=== PATIENT | female | born 1995 | race Caucasian/White ===

== ENCOUNTER 2019-06-06 15:01 | Inpatient (IN) | payer OTHER ==
[~2019-06-06] VITALS: Ht 170.2 cm; Wt 59.5 kg
[2019-06-06] VITALS (20 sets, daily range): BP systolic 120–133; BP diastolic 70–85; PULSE 102–118; TEMP 98.5
--- NOTE | 2019-06-06 15:30 | NUR ---
Pt down in ED for rule out greenish/yellowish discharge. This RN down to run FHR strip. On admission to the ED, pt states increase of leaking of fluid and bloody discharge. [facility] EFM and toco applied. VSS. Amniotest positive. SVE per this RN /-3. Dr. Arevalo notified and requested to unit. Orders for betamethasone, mag, amp, LR bolus. See EMAR. IV started in both arms. See documentation. 1600-Dr. Arevalo on unit. Bedside US performed. Confirms vertex position. Dr. Arevalo at bedside until pt taken back to OR. 1610-SVE per Dr. Arevalo /with BBOW. Del Castillo catheter placed by this RN with return of clear, yellow, urine. 1645-SVE of Dr. Arevalo unchanged. Decision for primary section. 1652-Pt taken off monitors and to OR.
[2019-06-06 16:13] LABS: HEMATOCRIT 38.7 % (37.0-47.0); HEMOGLOBIN 13.4 g/dl (12.5-16.0); MEAN CELL VOLUME 96 fl (80.0-100.0); MEAN CORPUSCULAR HEMOGLOBIN 33 pg (27.0-31.0); MEAN CORPUSCULAR HGB CONC 35 g/dl (33.0-37.0); MEAN PLATELET VOLUME 9.2 fl (7.4-10.4); PLATELET COUNT 272 K/mm3 (130-400); RED BLOOD COUNT 4.02 M/mm3 (4.10-5.30); REDCELL DISTRIBUTION WIDTH-CV 12.3 % (11.5-14.5)
[2019-06-06 16:54] LABS: BAND 8 % (0-10); LYMPHOCYTE 6 % (20.0-51.0); METAMYELOCYTE 1 % (0-0); NEUTROPHILS 80 % (42.0-75.2); PLATELET ESTIMATE NORMAL (NORMAL)
[2019-06-06 17:18] LABS: UMBILICAL ARTERY ABG PCO2 38.2 mmHg (30-65); UMBILICAL ARTERY ABG PO2 34.2 mmHg (50-75)
[2019-06-06 17:19] LABS: UMBILICAL ARTERY ABG pH 7.33 (7.28-7.45)
[2019-06-06] MEDS ORDERED: PRENATAL MVI PO (22:13)
[2019-06-06] MEDS ORDERED: FOLIC ACID800 MCG PO (22:13)
[2019-06-06] MEDS ORDERED: UNISOM25 MG PO (22:14)
[2019-06-07 00:30] VITALS: BP 107/71; PULSE 96; TEMP 99.1
[2019-06-07 05:05] VITALS: BP 102/64; PULSE 68; TEMP 98.9
[2019-06-07 07:15] VITALS: BP 115/84; PULSE 84; TEMP 98.4
[2019-06-07] MEDS ORDERED: PERCOCET 325 MG1 TA2 PO (08:56)
[2019-06-07] MEDS ORDERED: IBU600 MG PO (08:56)
[2019-06-07 11:25] VITALS: BP 110/75; PULSE 70; TEMP 98.4
[2019-06-07 16:29] VITALS: BP 96/50; PULSE 87; TEMP 98.4
--- NOTE | 2019-06-07 17:49 | NUR ---
Patient given discharge instructions. Reviewed instructions and warning signs. Encouraged to call [facility] tomorrow to schedule follow up appt with Dr. Arevalo. Patient denies questions.
== END 2019-06-07 18:00 | disposition home or self-care (01) | DRG 787 ==
LOC: COL.ER 15:01 → LDRO 15:02 → EDSTATUS 15:31 → LDR 16:09 → LDRO 17:00 → OB 17:00 → LDR 17:40 → LDRO 17:40 → OB 06-07 18:00
PROVIDERS: ADMIT Obstetrics & Gynecology
PROC: 10D00Z1 Extraction of Products of Conception, Low, Open Approach (ICD-10-PCS; principal; 2019-06-06)
DX: O60.12X0 Preterm labor second trimester with preterm delivery second trimester, not applicable or unspecified (principal); O72.1 Other immediate postpartum hemorrhage; O42.912 Preterm premature rupture of membranes, unspecified as to length of time between rupture and onset of labor, second trimester; O36.8330 Maternal care for abnormalities of the fetal heart rate or rhythm, third trimester, not applicable or unspecified; O69.1XX0 Labor and delivery complicated by cord around neck, with compression, not applicable or unspecified; Z37.0 Single live birth; Z3A.25 25 weeks gestation of pregnancy
CPT/HCPCS: J0171; J0290; J0330; J0690; J0702; J1100; J1885; J2590; J2704; J2710; J3010; J3475; J7120